=== PATIENT | female | born 1995 | race Caucasian/White ===

== ENCOUNTER 2020-07-20 14:12 | Outpatient (CLI) | payer OTHER, MEDICARE, MEDICAID, SELFPAY ==
[2020-07-20 15:24] LABS: Hematocrit 37.6 % (37.0-47.0); Hemoglobin 11.4 g/dL (12.0-15.0); Mean Corpuscular HGB Conc 30.3 g/dl (32-36); Mean Corpuscular Hemoglobin 24.5 pg (26-34); Mean Corpuscular Volume 80.7 fl (80-100); Mean Platelet Volume 9.3 fl (7.4-10.4); Platelet Count Result 333 k/mm3 (150-375); Red Blood Count 4.66 M/mm3 (4.2-5.4); Red Cell Distribution Width 15.8 % (11.5-14.5); White Blood Count 4.6 K/mm3 (4.5-10.0)
[2020-07-20 15:53] LABS: Beta HCG Quantitative < 2.39 mIU/ML
[2020-07-20 16:44] LABS: Free T4 Free Thyroxine 0.97 ng/mL (0.78-2.19)
[2020-07-25 07:46] LABS: Prolactin 11.5 ng/mL (***)
== END 2020-07-20 14:13 | disposition home or self-care (01) ==
PROVIDERS: PCP Family Medicine; Visit Provider Obstetrics & Gynecology
DX: R10.2 Pelvic and perineal pain (principal); N92.0 Excessive and frequent menstruation with regular cycle; Z86.2 Personal history of diseases of the blood and blood-forming organs and certain disorders involving the immune mechanism
CPT/HCPCS: 36415; 84146; 84439; 84443; 84702; 85027

== ENCOUNTER 2020-07-28 15:07 | Outpatient (CLI) | payer OTHER, MEDICARE, MEDICAID, SELFPAY ==
--- NOTE | ~2020-07-28 | US_ITS ---
EXAMINATION: US pelvic complete DATE: 07/28/2020 15:59 INDICATION: Enlarged uterus, heavy periods TECHNIQUE: Multiple transabdominal and endovaginal sonographic images of the pelvis were obtained. COMPARISON: None. FINDINGS: The uterus measures 21.6 x 10.9 x 17.7 cm. There are multiple large uterine fibroids, the l argest of which measures 12.1 x 9.0 x 11.3 cm. The endometrial complex is effaced by the uterine fibr oids. The left ovary is not visualized however no left adnexal abnormality is seen. The right ovary m easures 1.9 x 3.3 x 2.1 cm. There is normal vascular flow in the right ovary. There is no free fluid in the pelvis. IMPRESSION: 1. Markedly enlarged fibroid uterus. Reviewed, dictated and finalized at location A. SELECTOR
== END 2020-07-28 15:08 | disposition home or self-care (01) ==
PROVIDERS: PCP Family Medicine; Visit Provider Obstetrics & Gynecology
DX: N92.6 Irregular menstruation, unspecified (principal); D25.9 Leiomyoma of uterus, unspecified
CPT/HCPCS: 76856

== ENCOUNTER 2022-10-27 11:09 | Emergency (ER) | payer OTHER, MEDICARE, MEDICAID, SELFPAY ==
[2022-10-27 11:28] VITALS: BP 125/76; PULSE 81; RESP 16; TEMP 36.4; O2SAT 99
--- NOTE | 2022-10-27 12:02 | ED.URI ---
HPI - URI/Sore Throat General Chief Complaint: Upper Respiratory Infection Stated Complaint: sore throat Source: patient, family and RN notes reviewed History of Present Illness HPI Narrative: 27 yo F presents to urgent care with mother at side. Pt states she has been having a sore throat since Sunday. Pt states she vomited x 1 yesterday or Sunday. Denies any fevers, chills, congestion, ear pain, chest pain, SOB, or abdominal pain. PT has been getting Tylenol at home. Related Data Home Medications Medication Instructions Recorded Confirmed cholecalciferol (vitamin D3) 50 50 mcg PO DAILY 07/20/20 10/27/22 mcg (2,000 unit) capsule Allergies Allergy/AdvReac Type Severity Reaction Status Date / Time No Known Allergies Allergy Unknown Other Verified 10/27/22 11:34 Review of Systems Review of Systems: Pertinent positives and pertinent negatives per HPI. [facility] Past Medical History Medical History ADHD Anemia Encounter for well woman exam with routine gynecological exam History of anemia Vitamin D deficiency Family History Family History Father No problems noted. Mother No problems noted. Social History Social History Smoking status: Never smoker Alcohol intake: never Substance use: never Living arrangements: with family Occupation/Education: other Gender identity (if verbalized by the patient): Female Comments At the time of my signature, I reviewed and agree with the nursing past medical, surgical, social, and family history. There is no relevant family history pertinent to the patient complaint. Exam Narrative: GENERAL: This is a well-nourished, well-developed patient, in no apparent distress. HEAD: normocephalic, atraumatic. EYES: PERRL. Sclera clear/white. Vision is grossly intact. EARS: External ears normal, auditory canals clear and without drainage, TMs normal without perforation. Hearing grossly intact. NOSE: External nose normal with no obvious nasal discharge, nares without redness, no rhinorrhea. THROAT: Mucous membranes moist, posterior pharynx clear. NECK: Neck supple, non-tender without lymphadenopathy, masses or thyromegaly. CARDIOVASCULAR: Regular rate and rhythm without murmurs, gallops, or rubs. RESPIRATORY: Clear to auscultation. Breath sounds equal bilaterally. No wheezes, rales, or rhonchi. GASTROINTESTINAL: Abdomen soft, non-tender, nondistended. Bowel sounds are active. No hepato-splenomegaly, or palpable masses. No guarding. SKIN: warm, intact with no suspicious lesions or rash, good texture and turgor. NEURO: awake, alert, at baseline. Course Course Level of Care: Express Care Visit Vital Signs Vital signs: Vital Signs Temperature 97.6 F 10/27/22 11:28 Pulse Rate 81 10/27/22 11:28 Respiratory Rate 16 10/27/22 11:28 Blood Pressure 125/76 10/27/22 11:28 Pulse Oximetry 99 10/27/22 11:28 Oxygen Delivery Room Air 10/27/22 11:28 Temperature 97.6 F 10/27/22 11:28 Pulse Rate 81 10/27/22 11:28 Respiratory Rate 16 10/27/22 11:28 Blood Pressure 125/76 10/27/22 11:28 Pulse Oximetry 99 10/27/22 11:28 Oxygen Delivery Room Air 10/27/22 11:28 Reviewed MDM - URI/Sore Throat MDM Narrative Medical decision making narrative: Rapid strep is negative in the office; however we will send to the lab for confirmation; there is a small percentage chance that it can come back positive; if it is, we will call you in 2-3days; and your prescription will be call in to your pharmacy. However, there is NO indication for antibiotic at this time. -Increase your fluids and Vitamin C. -Oral rinses such as: Salt water gargles and/or may use topical anesthetic (eg. Chloraseptic spray) or lozenges to relieve dryness or throat pain. -Take tylenol and ibuprofen as
== END 2022-10-27 12:05 | disposition home or self-care (01) ==
PROVIDERS: Emergency Provider Nurse Practitioner Family; PCP Family Medicine
DX: J02.9 Acute pharyngitis, unspecified (principal); E55.9 Vitamin D deficiency, unspecified
CPT/HCPCS: 87081; 87880; 99213; G0463